=== PATIENT | female | born 1965 | race American Indian/Alaskan Native ===

== ENCOUNTER 2016-10-13 13:30 | Emergency (ER) | payer SELFPAY ==
--- NOTE | 2016-10-13 14:22 | Emergency Department Report ---
Chief Complaint: Abdominal Pain Stated Complaint: BACK LOW PAIN/ABD PAIN Time Seen by Provider: 10/13/16 14:14 - HPI History of Present Illness: 51-year-old -[place] female comes in for known history of hypertension but has not been on any medication. Patient comes in having lower back pain and abdominal pain 2 weeks. She denies any discharge she admits to nausea and diarrhea no vomiting no vaginal bleeding no vaginal discharge. She reports that her blood pressure goes up and down area and she reports that she has been on blood pressure medicine but not in the last 2 years. - Exam Vital Signs: Vital Signs 10/13/16 14:06 Temperature 98.2 F Pulse Rate 90 Respiratory 20 Rate Blood Pressure 178/116 O2 Sat by Pulse 98 Oximetry Physical Exam: Patient's alert and oriented 3 cardiovascular S1-S2 regular rate and rhythm respiratory clear to consultation bilaterally abdomen soft nontender nondistended MSE screening note: Focused history and physical exam performed. Due to findings the following was ordered: Abdominal protocol ordered patient be evaluated in main ER ED Disposition for MSE Condition: Stable Instructions: Abdominal Pain (ED)
[2016-10-13 15:16] LABS: Basophils % (Auto) 0.8 % (0.0-1.8); Hematocrit 42.1 % (30.3-42.9); Hemoglobin 13.9 gm/dl (10.1-14.3); Mean Corpuscular HGB Conc 33 % (30-34); Mean Corpuscular Hemoglobin 31 pg (28-32); Mean Corpuscular Volume 93 fl (79-97); Platelet Count 251 K/mm3 (140-440); Red Blood Count 4.54 M/mm3 (3.65-5.03); Red Cell Distribution Width 14.4 % (13.2-15.2); White Blood Count 11.9 K/mm3 (4.5-11.0)
[2016-10-13 15:33] LABS: Bilirubin,Urine NEG (Negative); Blood,Urine NEG (Negative); Ketones,Urine TR mg/dL (Negative); Leukocyte Esterase,Urine LG (Negative); Mucus,Urine FEW /HPF; Nitrite,Urine NEG (Negative); Urobilinogen,Urine < 2.0 mg/dL (<2.0)
[2016-10-13 15:42] LABS: Alanine Aminotransferase 18 units/L (7-56); Albumin 4.1 g/dL (3.9-5); Albumin/Globulin Ratio 1.3 %; Alkaline Phosphatase 90 units/L (35-129); Anion Gap 15 mmol/L; BUN/Creatinine Ratio 18.88; Bilirubin,Total 0.2 mg/dL (0.1-1.2); Blood Urea Nitrogen 17 mg/dL (7-17); Carbon Dioxide 28 mmol/L (22-30); Chloride 104.5 mmol/L (98-107); Glucose 85 mg/dL (65-100); Lipase 87 units/L (13-60); Potassium 3.9 mmol/L (3.6-5.0); Sodium 144 mmol/L (137-145); Total Protein 7.2 g/dL (6.3-8.2)
[2016-10-13] MEDS ORDERED: NACL 0.9% 1000 ML 1,000 ML IV ONE (19:23)
[2016-10-13] MEDS ORDERED: ROCEPHIN/NS 1 GM/50 ML 1 GM/50 ML BAG IV ONE (19:24)
[2016-10-13] MEDS ORDERED: APRESOLINE IV ONE (19:28)
[2016-10-13] MEDS ORDERED: NACL ONE (19:58)
[2016-10-13 20:19] LABS: Creatine Kinase MB 2.5 ng/mL (0.0-4.0)
--- NOTE | 2016-10-13 21:40 | Cat Scan Report ---
FINAL REPORT PROCEDURE: CT abdomen and pelvis with contrast. TECHNIQUE: Computerized axial tomography of the abdomen and pelvis was performed after the IV injection of iodinated nonionic contrast. HISTORY: Left-sided abdominal pain, question pyelonephritis. COMPARISON: No prior studies are available for comparison. FINDINGS: The lung bases are clear. There are no pleural effusions. The heart size is normal. The liver, spleen and pancreas appear normal. The gallbladder has been removed. There is mild intrahepatic and extrahepatic biliary dilatation. The adrenal glands are not enlarged. Both kidneys appear normal in size and configuration. Both kidneys enhance normally. There are no signs of pyelonephritis. The abdominal aorta has a normal caliber. 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 There is no retroperitoneal adenopathy. The unopacified gastrointestinal tract is unremarkable. A normal appendix is visible. The bladder is distended. The uterus and adnexal regions appear normal. The regional skeleton appears intact. IMPRESSION: Previous cholecystectomy. No evidence of acute disease in the abdomen or pelvis.
[2016-10-13] MEDS ORDERED: CATAPRES PO ONE (21:51)
--- NOTE | 2016-10-13 21:55 | Emergency Department Report ---
ED Abdominal Pain HPI - General Chief Complaint: Abdominal Pain Stated Complaint: BACK LOW PAIN/ABD PAIN Time Seen by Provider: 10/13/16 14:14 Source: patient Mode of arrival: Ambulatory Limitations: No Limitations - History of Present Illness Initial Comments: 51-year-old female past medical history hypertension, diverticulitis presents with complaint of one week of increased urinary frequency, abdominal pain intermittent and left-sided flank pain. Patient is awake alert and oriented 3 appears somewhat uncomfortable, states she has been intermittently nauseous and has had increased urinary frequency. Patient states that she does not have any vaginal discharge no vaginal bleeding. Pain is intermittent colicky and on the left side of her abdomen/left flank. Patient states that she has not been taking her blood pressure medicine for several months previously on hydrochlorothiazide and metoprolol as per the patient. When I asked her why she stated that she has not followed up with her primary care doctor due to personal issues, patient states that she has been busy taking care of her grandchildren. Patient denies any fever or chills but is complaining of increased urinary frequency. Denies any recent travel. Patient denies any chest pain palpitations or shortness of breath. Denies any headache and no paresthesias. MD Complaint: abdominal pain Onset/Timin -: week(s) Location: periumbilical, L flank Radiation: L flank Migration to: suprapubic Severity: moderate Severity scale (0 -10): 5 Quality: aching Consistency: constant Improves With: nothing Associated Symptoms: nausea, dysuria - Related Data Previous Rx's Medication Instructions Recorded Last Taken Type Ciprofloxacin HCl [Ciprofloxacin 500 mg PO Q12HR #14 tab 10/13/16 Unknown Rx TAB] Hydrochlorothiazide [HCTZ] 25 mg PO QDAY #30 tablet 10/13/16 Unknown Rx Metoprolol [Lopressor TAB] 50 mg PO BID #60 tablet 10/13/16 Unknown Rx Allergies Allergy/AdvReac Type Severity Reaction Status Date / Time aspirin Allergy Swelling Verified 10/13/16 14:11 Penicillins Allergy Shortness Verified 10/13/16 14:11 of Breath ED Review of Systems ROS: Stated complaint: BACK LOW PAIN/ABD PAIN Other details as noted in HPI Constitutional: denies: chills, fever Eyes: denies: eye pain, eye discharge, vision change ENT: denies: ear pain, throat pain Respiratory: denies: cough, shortness of breath, wheezing Cardiovascular: denies: chest pain, palpitations Endocrine: no symptoms reported Gastrointestinal: denies: abdominal pain, nausea, diarrhea Genitourinary: urgency, dysuria. denies: discharge Musculoskeletal: denies: back pain, joint swelling, arthralgia Skin: denies: rash, lesions Neurological: denies: headache, weakness, paresthesias Psychiatric: denies: anxiety, depression Hematological/Lymphatic: denies: easy bleeding, easy bruising ED Past Medical Hx - Past Medical History Hx Hypertension: Yes - Social History Smoking Status: Current Every Day Smoker Substance Use Type: None - Medications Home Medications: Home Medications Medication Instructions Recorded Confirmed Last Taken Type Ciprofloxacin HCl [Ciprofloxacin 500 mg PO Q12HR #14 tab 10/13/16 Unknown Rx TAB] Hydrochlorothiazide [HCTZ] 25 mg PO QDAY #30 tablet 10/13/16 Unknown Rx Metoprolol [Lopressor TAB] 50 mg PO BID #60 tablet 10/13/16 Unknown Rx ED Physical Exam - General Limitations: No Limitations General appearance: alert, in no apparent distress - Head Head exam: Present: atraumatic, normocephalic - Eye Eye exam: Present: normal appearance, PERRL, EOMI - ENT ENT exam: Present: mucous membranes moist - Neck Neck exam: Present: normal inspection - Respiratory Respiratory exam: Present: normal lung sounds bilaterally. Absent: respiratory distress - Cardiovascular Cardiovascular Exam: Present: regular rate, normal rhythm. Absent: systolic murmur, diastolic murmur, rubs, gallop - GI/Abdominal GI/Abdominal exam: Present: soft, tenderness (mild periumbilical tenderness), normal bowel sounds - Expanded GI/Abdominal Exam Expanded GI/Abdominal exam: Present: other (left-sided flank pain/slight CVA tenderness left side) - Extremities Exam Extremities exam: Present: normal inspection, full ROM - Back Exam Back exam: Present: normal inspection - Neurological Exam Neurological exam: Present: alert, oriented X3, CN II-XII intact, normal gait - Psychiatric Psychiatric exam: Present: normal affect, normal mood - Skin Skin exam: Present: warm, dry, intact, normal color. Absent: rash ED Course Vital Signs 10/13/16 10/13/16 10/13/16 14:06 20:42 22:09 Temperature 98.2 F 98.0 F Pulse Rate 90 88 80 Respiratory 20 20 Rate Blood Pressure 178/116 243/152 Blood Pressure 249/138 [Left] O2 Sat by Pulse 98 98 Oximetry 10/13/16 22:11 Temperature Pulse Rate 80 Respiratory Rate Blood Pressure 249/132 Blood Pressure [Left] O2 Sat by Pulse Oximetry ED Medical Decision Making - Lab Data Result diagrams: 10/13/16 14:58 10/13/16 14:58 - Medical Decision Making A/P: Abdominal pain, hypertensive crisis 1-based on patient's urinalysis and clinical symptoms I treated patient empirically for pyelonephritis/UTI with 1 g of ceftriaxone. In context of her uncontrolled hypertension, nausea and abdominal pain I ordered CT abdomen and pelvis with contrast to assess patient's kidney for possible pyelonephritis and also secondarily to assess patient's abdominal aorta (due to radiating pain from mid abdomen to back/flank). 2-patient had no slurred speech no upper or lower extremity weakness or paresthesias no facial droop no pronator drift. No clinical neurological deficits on my exam. I informed the patient that her blood pressure is dangerously high at nearly 250 systolic and over 110 diastolic. i attempted to control her BP in ED with hydralazine in clonidine. Patient admitted to me that she has not been taking her blood pressure medicine for several months due to issues with insurance and not making time to follow up with her primary care doctor. I informed the patient that with a blood pressure this high in the context of abdominal pain we must continue to monitor her in the ED, give her blood pressure medicine to stabilize her blood pressure and admit her for blood pressure control and assessment by an internal medicine doctor. Patient was awake alert and oriented 3, fully lucid and able to converse with me and understand the context of the conversation. The patient stated that she could not stay in the hospital because she has to go home and watch her grandchildren. She points to the patient that she is at high risk for heart attack and stroke and possibly an aortic aneurysm with uncontrolled blood pressures as high in the context of her symptoms. Patient states that she understood these risks but could not stay in the hospital even for a few more hours, stated that she had to go home. My nurse also spoke to the patient and urged her to stay for further assessment and treatment but patient stated to both of us she could not stay 3- I informed Dr. Rajput of pts clinical status, as recommended by Dr. Rajput I had extensive conversation w pt about her cardiovascular an neurologic risks. pt refused to continue to stay in the ED or be admitted and expressed understanding of the risk she is taking with her health and the potential lethal / debilitating consequences of uncontrolled BP. 4- I provided pt w/ f/u for primary care and cardiology and urged her to follow up [facility]. I represcribed her prior dosing of HCTZ and metoprolol and provided her with 1 month of Rx's. 5- Pt treated for pyelonephritis on outpt basis as she is unwilling to stay in hospital and expresses her desire to leave now 6- pt signed AMA form witnessed by primary care provider attestation.: If time is entered above; I have spent that time in minutes in the direct care of this critically ill patient, excluding procedure time. ED Disposition Clinical Impression: Hypertensive crisis Abdominal pain Qualifiers: Abdominal location: periumbilical Qualified Code(s): R10.33 - Periumbilical pain Disposition: LEFT AGAINST MEDICAL ADVICE Is pt being admited?: No Does the pt Need Aspirin: No Condition: Stable Instructions: Urinary Tract Infection in Women (ED), Acute Pyelonephritis (ED) , Hypertensive Crisis (ED), Against Medical Advice (ED) Prescriptions: Ciprofloxacin HCl [Ciprofloxacin TAB] 500 mg PO Q12HR #14 tab Hydrochlorothiazide [HCTZ] 25 mg PO QDAY #30 tablet Metoprolol [Lopressor TAB] 50 mg PO BID #60 tablet Referrals: TRISTEN MEDINA MD [Staff Physician] - 3-5 Days [facility] [Outside] - 3-5 Days HARRY ORTEGA MD [Staff Physician] - 3-5 Days Forms: AMA Form Time of Disposition: 22:07
[2016-10-13 22:12] VITALS: BP 249/132
== END 2016-10-13 22:30 | disposition left against medical advice (07) ==
LOC: ED 13:30
DX: I16.9 Hypertensive crisis, unspecified (principal); R10.33 Periumbilical pain; F17.200 Nicotine dependence, unspecified, uncomplicated; Z88.0 Allergy status to penicillin; Z88.6 Allergy status to analgesic agent
CPT/HCPCS: 36415; 74177; 80053; 81001; 82140; 82150; 82553; 83690; 84484; 85025; 93005; 93010; 96365; 96375; 99284; J0360; J0696; J7030; Q9967